=== PATIENT | female | born 1980 | race Two or more races ===

== ENCOUNTER 2022-09-07 13:47 | Emergency (ER) | payer OTHER ==
[~2022-09-07] VITALS: Ht 152.4 cm; Wt 70.3 kg
[2022-09-07] MEDS ORDERED: ZANAFLEX2 M1 PO (14:10)
== END 2022-09-07 17:15 | disposition home or self-care (01) ==
LOC: ER 13:47
DX: B34.9 Viral infection, unspecified (principal); R50.9 Fever, unspecified; M54.9 Dorsalgia, unspecified; Z20.822 Contact with and (suspected) exposure to COVID-19

== ENCOUNTER 2022-09-08 14:22 | Inpatient (IN) | payer OTHER ==
[~2022-09-08] VITALS: Ht 154.9 cm; Wt 74.4 kg
[~2022-09-08 14:22] MED LIST: ZANAFLEX2 M1 PO
[2022-09-09] MEDS ORDERED: DICLOFENAC POTA25 MG (12:40)
== END 2022-09-12 18:00 | disposition home or self-care (01) | DRG 813 ==
LOC: ER 14:22 → MEDI 20:20
PROVIDERS: ADMIT Internal Medicine; ATTEND Internal Medicine
PROC: BF37ZZZ Magnetic Resonance Imaging (MRI) of Pancreas (ICD-10-PCS; principal; 2022-09-12)
DX: D69.6 Thrombocytopenia, unspecified (principal); D61.818 Other pancytopenia; D69.3 Immune thrombocytopenic purpura; E87.6 Hypokalemia; B35.1 Tinea unguium; M41.80 Other forms of scoliosis, site unspecified; F32.A Depression, unspecified